=== PATIENT | female | born 2000 | race African-American/Black ===

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

== ENCOUNTER 2019-03-18 03:21 | Emergency (ER) | payer SELFPAY ==
[~2019-03-18] VITALS: Ht 154.9 cm; Wt 79.5 kg
[~2019-03-18 03:21] MED LIST: BISA5TAB82 PO
[2019-03-18 04:51] LABS: GLUCOSE,POINT OF CARE 104 MG/DL (70-110)
[2019-03-18 06:13] VITALS: BP 118/60
== END 2019-03-18 06:44 | disposition home or self-care (01) ==
LOC: EMS 03:21
DX: F10.129 Alcohol abuse with intoxication, unspecified (principal); F12.90 Cannabis use, unspecified, uncomplicated; J45.909 Unspecified asthma, uncomplicated